=== PATIENT | female | born 1980 | race Caucasian/White ===

== ENCOUNTER 2018-07-25 16:08 | Inpatient (IN) | payer OTHER ==
[~2018-07-25] VITALS: Ht 160 cm; Wt 118.0 kg
[2018-07-25] MEDS ORDERED: Aspir 8181 MG PO (17:18)
[2018-07-25] MEDS ORDERED: Verotin-Gr Cap1 EACH PO (17:18)
[2018-07-25] MEDS ORDERED: Magnesium500 MG PO (17:19)
[2018-07-25] MEDS ORDERED: B Complex #11 EACH PO (17:19)
[2018-07-25] MEDS ORDERED: TUMS300 MG PO (17:20)
[2018-07-25 17:39] LABS: BASOPHILS ABSOLUTE AUTO 0.02 K/mm3 (0.00-0.23); BASOPHILS PERCENT AUTO 0 % (0-2); EOSINOPHILS ABSOLUTE AUTO 0.07 K/mm3 (0.00-0.68); EOSINOPHILS PERCENT AUTO 1 % (0-6); Hematocrit 36.3 % (33.0-51.0); IMMATURE GRAN ABSOLUTE AUTO 0.02 K/mm3 (0.00-0.10); IMMATURE GRAN PERCENT AUTO 0 % (0-1); LYMPHOCYTES ABSOLUTE AUTO 1.55 K/mm3 (0.84-5.20); LYMPHOCYTES PERCENT AUTO 18 % (21-46); MONOCYTES ABSOLUTE AUTO 0.43 K/mm3 (0.16-1.47); MONOCYTES PERCENT AUTO 5 % (4-13); Mean Corpuscular HGB 27.1 pg (26.0-34.0); Mean Corpuscular HGB Conc 33.1 g/dL (31.5-36.5); Mean Corpuscular Volume 82 fL (80-100); Mean Platelet Volume 11.1 fL (9.1-12.4); NEUTROPHILS ABSOLUTE AUTO 6.78 K/mm3 (1.96-9.15); NEUTROPHILS PERCENT AUTO 77 % (41-73); Platelet Count 270 K/mm3 (150-400); RDW Standard Deviation 38.5 fL (35.1-46.3); Red Blood Cell Count 4.43 M/mm3 (3.80-5.20); White Blood Cell Count 8.87 K/mm3 (4.00-11.30)
[2018-07-27 21:47] LABS: PCO2 Cord - Arterial 48.2 mmHg (40-50); PO2 Cord - Arterial 10.4 mmHg (16-20); pH Cord - Arterial 7.27 (7.28-7.35)
[2018-07-27 21:48] LABS: PCO2 Cord - Venous 33.4 mmHg (40-50); PO2 Cord - Venous 27.2 mmHg (28-32); pH Umbilical Cord - Venous 7.36 (7.26-7.35)
[2018-07-28 05:19] LABS: Hematocrit 29.4 % (33.0-51.0); Hemoglobin 9.8 g/dL (11.5-16.0); Mean Corpuscular HGB Conc 33.3 g/dL (31.5-36.5); Mean Corpuscular Volume 84 fL (80-100); Mean Platelet Volume 10.9 fL (9.1-12.4); Platelet Count 210 K/mm3 (150-400); RDW Coefficient Variation 13.2 % (11.7-14.2); RDW Standard Deviation 39.7 fL (35.1-46.3); White Blood Cell Count 16.05 K/mm3 (4.00-11.30)
[2018-07-28 05:34] LABS: International Normalized Ratio 0.97
[2018-07-29 05:50] LABS: Hematocrit 27.5 % (33.0-51.0); Hemoglobin 9.1 g/dL (11.5-16.0); Mean Corpuscular HGB 27.6 pg (26.0-34.0); Mean Corpuscular HGB Conc 33.1 g/dL (31.5-36.5); Mean Corpuscular Volume 83 fL (80-100); Mean Platelet Volume 10.6 fL (9.1-12.4); Platelet Count 208 K/mm3 (150-400); RDW Coefficient Variation 13.4 % (11.7-14.2); RDW Standard Deviation 40.4 fL (35.1-46.3); White Blood Cell Count 11.58 K/mm3 (4.00-11.30)
[2018-07-29 06:07] LABS: International Normalized Ratio 1.11; Prothrombin Time Results 11.4 Sec (9.7-11.5)
[2018-07-29] MEDS ORDERED: ENOX80I SC (11:22)
[2018-07-29] MEDS ORDERED: Coumadin7.5 MG PO (11:22)
[2018-07-29] MEDS ORDERED: Percocet 5-3251 EACH PO (11:23)
== END 2018-07-29 15:04 | disposition home or self-care (01) | DRG 787 ==
LOC: OBS 16:08 → BC 16:11 → OBS 16:14 → BC 16:18
PROVIDERS: Nurse Practitioner Obstetrics & Gynecology; Obstetrics & Gynecology
PROC: 10D00Z1 Extraction of Products of Conception, Low, Open Approach (ICD-10-PCS; principal; 2018-07-27 20:00)
DX: O24.420 Gestational diabetes mellitus in childbirth, diet controlled (principal); O99.12 Other diseases of the blood and blood-forming organs and certain disorders involving the immune mechanism complicating childbirth; D68.51 Activated protein C resistance; Z68.42 Body mass index [BMI] 45.0-49.9, adult; O62.1 Secondary uterine inertia; Z3A.39 39 weeks gestation of pregnancy; Z37.0 Single live birth; O69.1XX0 Labor and delivery complicated by cord around neck, with compression, not applicable or unspecified; O99.214 Obesity complicating childbirth; E66.01 Morbid (severe) obesity due to excess calories; Z88.8 Allergy status to other drugs, medicaments and biological substances
CPT/HCPCS: 36415; 36416; 51702; 82803; 82947; 85025; 85027; 85610; 86850; 86900; 86901; J0171; J0690; J1200; J1650; J1885; J2210; J2250; J2270; J2370; J2405; J2590; J2765; J3010; J7060; J7070; J7120; Q0163